=== PATIENT | female | born 1990 | race Caucasian/White ===

== ENCOUNTER → 2019-04-30 | Outpatient (CLI) | payer MEDICAID ==
[~2019-04-30] MED LIST: ARIP1TAB; HYDR-3363; MECL-68 PO; PRAZ1CAP; REGL10TA6 PO
[2019-04-30 10:52] LABS: HEMATOCRIT 37.8 % (36.0-47.0); HEMOGLOBIN 12.3 g/dl (12.0-15.5); MEAN CORPUSCULAR HEMOGLOBIN 30.9 pg (27.0-33.0); MEAN CORPUSCULAR HGB CONC 32.5 g/dl (32.0-36.5); PLATELET COUNT, AUTOMATED 260 10^3/uL (150-450); RED BLOOD COUNT 3.98 10^6/uL (4.00-5.40); WHITE BLOOD COUNT 4.6 10^3/uL (4.0-10.0)
[2019-04-30 11:24] LABS: HCG, SERUM QUALITATIVE NEGATIVE (NEGATIVE)
[2019-04-30 11:31] LABS: HEMOGLOBIN A1c 5.2 %
[2019-04-30 11:34] LABS: ALBUMIN 3.6 GM/DL (3.2-5.2); ALT/SGPT 25 U/L (12-78); BILIRUBIN,TOTAL 0.4 MG/DL (0.2-1.0); BLOOD UREA NITROGEN 16 MG/DL (7-18); CALCIUM LEVEL 8.6 MG/DL (8.5-10.1); CARBON DIOXIDE LEVEL 27 MEQ/L (21-32); CHLORIDE LEVEL 105 MEQ/L (98-107); CREATININE FOR GFR 0.74 MG/DL (0.55-1.30); GLOMERULAR FILTRATION RATE > 60.0 (>60); GLUCOSE, FASTING 86 MG/DL (70-100); POTASSIUM SERUM 4.4 MEQ/L (3.5-5.1); PROLACTIN 2.8 NG/ML; SODIUM LEVEL 139 MEQ/L (136-145); TOTAL PROTEIN 7.1 GM/DL (6.4-8.2)
--- NOTE | 2019-05-02 01:04 | ECGEPIP ---
[facility] Test Date: 2019-04-30 Pat Name: SHEILA LAI Department: Room: - Gender: Female [employer]ent [employer] Assistant: AKSHAT : 1990 Requested By: Marley Gage Order Number: [id number] Reading MD: Lorenzo Tena Measurements Intervals Reasnor Rate: 66 P: 33 WA: 142 QRS: 61 QRSD: 82 T: 15 QT: 385 QTc: 404 Interpretive Statements SINUS RHYTHM WITH SINUS ARRHYTHMIA BORDERLINE LOW-VOLTAGE QRS COMPLEXES IN THE LIMB LEADS NO PRIOR TRACING IN THE SYSTEM Electronically Signed on 05-02-2019 1:03:33 EST by Lorenzo Tena
== END ==
LOC: M LAB 09:41
PROVIDERS: ATTEND Nurse Practitioner Psychiatric/Mental Health
DX: F33.1 Major depressive disorder, recurrent, moderate (principal)

== ENCOUNTER 2019-05-08 19:54 | Emergency (ER) | payer MEDICAID ==
[~2019-05-08] VITALS: Ht 157.5 cm; Wt 71.3 kg
[2019-05-08] MEDS ORDERED: ARIP1TAB (20:00)
[2019-05-08] MEDS ORDERED: HYDR-3363 (20:00)
[2019-05-08] MEDS ORDERED: PRAZ1CAP (20:00)
[2019-05-08] MEDS ORDERED: diphenhydrAMINE INJ 50MG/ML VIAL (J1200) IV STA (20:28)
[2019-05-08] MEDS ORDERED: MECLIZINE 25 MG TABLET PO ONE (20:30)
[2019-05-08] MEDS ORDERED: METOCLOPRAMIDE INJ 10MG/2ML VIAL (J2765) IV ONE (20:30)
[2019-05-08] MEDS ORDERED: NS 1,000 ML IV ONE ×2 (20:30→22:45)
[2019-05-08] MEDS ORDERED: KETOROLAC 30 MG/ML VIAL (J1885) IV ONE (20:30)
[2019-05-08 20:55] LABS: BASO % 0.2 % (0.0-1.0); EOS % 0.3 % (0.0-3.0); HEMATOCRIT 39.5 % (36.0-47.0); HEMOGLOBIN 12.8 g/dl (12.0-15.5); LYMPH # 0.5 10^3/uL (1.5-5.0); LYMPH % 8.1 % (24.0-44.0); MEAN CORPUSCULAR HEMOGLOBIN 30.6 pg (27.0-33.0); MEAN CORPUSCULAR HGB CONC 32.4 g/dl (32.0-36.5); MEAN CORPUSCULAR VOLUME 94.5 fl (80.0-96.0); MONO # 0.4 10^3/uL (0.0-0.8); MONO % 6.3 % (0.0-5.0); NEUTROPHILS # 5.7 10^3/uL (1.5-8.5); NEUTROPHILS % 84.9 % (36.0-66.0); PLATELET COUNT, AUTOMATED 229 10^3/uL (150-450); RED BLOOD COUNT 4.18 10^6/uL (4.00-5.40); WHITE BLOOD COUNT 6.7 10^3/uL (4.0-10.0)
[2019-05-08 21:21] LABS: ALBUMIN 3.5 GM/DL (3.2-5.2); BILIRUBIN,DIRECT 0.2 MG/DL (0.0-0.2); BILIRUBIN,TOTAL 0.5 MG/DL (0.2-1.0); TOTAL PROTEIN 6.8 GM/DL (6.4-8.2)
[2019-05-08 21:24] LABS: BILIRUBIN, URINE MANUAL NEGATIVE (NEGATIVE); GLUCOSE, URINE (UA) MANUAL NEGATIVE (NEGATIVE); KETONE, URINE MANUAL NEGATIVE (NEGATIVE); UROBILINOGEN, URINE MANUAL NORMAL (NORMAL)
[2019-05-08 21:31] LABS: BACTERIA, URINE SMALL AMOUNT; HYALINE CAST, URINE NONE SEEN /lpf (0-1); RBC, URINE NONE SEEN /hpf (0-3); SQUAMOUS EPITHELIAL CELL URINE SMALL AMOUNT /hpf (SMALL AMT)
[2019-05-08] MEDS ORDERED: diazePAM 5 MG TAB PO ONE (22:45)
[2019-05-09 00:32] VITALS: BP 114/62
[2019-05-09] MEDS ORDERED: MECL-68 PO (00:32)
[2019-05-09] MEDS ORDERED: REGL10TA6 PO (00:32)
--- NOTE | 2019-05-09 06:36 | REP ---
Clinical: Headache with visual disturbances, dizziness and nausea/vomiting . Comparison: None . Findings: The ventricles, sulci, and cisterns are normal in position and appearance. Beltran-white differentiation is maintained. No acute intracranial hemorrhage, mass/mass effect, pathology or trauma/injury. No evidence for acute infarction. No extra-axial fluid collection. Calvarium is intact. Paranasal sinuses and mastoid air cells are clear. Impression: Normal noncontrast head CT. No evidence for acute intracranial pathology or trauma/injury. Electronically Signed by Nolan Navarro MD 05/09/2019 06:27 A
[2019-05-13 00:07] LABS: Lyme Disease IgG Ab 18 kDa Ban Present (.); Lyme Disease IgG Ab 23 kDa Ban Absent (.); Lyme Disease IgG Ab 28 kDa Ban Absent (.); Lyme Disease IgG Ab 30 kDa Ban Absent (.); Lyme Disease IgG Ab 39 kDa Ban Absent (.); Lyme Disease IgG Ab 41 kDa Ban Absent (.); Lyme Disease IgG Ab 45 kDa Ban Absent (.); Lyme Disease IgG Ab 58 kDa Ban Absent (.); Lyme Disease IgG Ab 66 kDa Ban Absent (.); Lyme Disease IgG Ab 93 kDa Ban Absent (.); Lyme Disease IgG West Blot Int Negative (.); Lyme Disease IgG/IgM Antibodie 0.96 ISR (0.00-0.90); Lyme Disease IgM Ab 23 kDa Ban Absent (.); Lyme Disease IgM Ab 39 kDa Ban Absent (.); Lyme Disease IgM Ab 41 kDa Ban Absent (.); Lyme Disease IgM Ab Quantitati <0.80 index (0.00-0.79); Lyme Disease IgM West Blot Int Negative (.)
== END 2019-05-09 00:42 | disposition home or self-care (01) ==
LOC: M ED 19:54
DX: R42 Dizziness and giddiness (principal); I95.1 Orthostatic hypotension; H53.8 Other visual disturbances; R01.1 Cardiac murmur, unspecified; Z87.891 Personal history of nicotine dependence; Z79.899 Other long term (current) drug therapy; Z88.0 Allergy status to penicillin
CPT/HCPCS: 70450; 80047; 80076; 81000; 83690; 84702; 85025; 86617; 96361; 96374; 96375; 99284; J1200; J1885; J2765

== ENCOUNTER → 2020-05-13 | Outpatient (CLI) | payer SELFPAY ==
[~2020-05-13] MED LIST changes: -MECL-68 PO; +MECL1TAB31 PO
== END ==
LOC: M LABSMTC 13:23
PROVIDERS: ATTEND Pediatrics
DX: Z20.828 Contact with and (suspected) exposure to other viral communicable diseases (principal)

== ENCOUNTER → 2020-06-14 | Outpatient (CLI) | payer SELFPAY | LOC: M LABSMTC 14:22 | PROVIDERS: ATTEND Pediatrics | DX: Z20.828 Contact with and (suspected) exposure to other viral communicable diseases (principal) ==

== ENCOUNTER → 2020-08-09 | Outpatient (CLI) | payer OTHER ==
--- NOTE | 2020-08-09 10:02 | REP ---
INDICATION: PAIN COMPARISON: None. TECHNIQUE: AP, lateral, bilateral oblique views right ankle. FINDINGS: No acute fracture or dislocation. Skeletal structures and joint spaces are intact and normal. Ankle mortise appears stable. No subcutaneous emphysema or radiodense foreign body. IMPRESSION: Normal age-appropriate right ankle radiograph series. No acute fracture or dislocation. <Electronically signed by Nolan Navarro > 08/09/20 [id number]
== END ==
LOC: M WUC 09:39
PROVIDERS: ATTEND Physician Assistant
DX: M25.571 Pain in right ankle and joints of right foot (principal)

== ENCOUNTER → 2020-08-18 | Outpatient (REF) | payer OTHER ==
[2020-08-18 13:50] LABS: ALBUMIN 3.8 GM/DL (3.2-5.2); ALT/SGPT 20 U/L (12-78); BILIRUBIN,TOTAL 0.3 MG/DL (0.2-1.0); BLOOD UREA NITROGEN 11 MG/DL (7-18); CALCIUM LEVEL 9.2 MG/DL (8.5-10.1); CARBON DIOXIDE LEVEL 27 MEQ/L (21-32); CHLORIDE LEVEL 106 MEQ/L (98-107); CHOLESTEROL LEVEL 178 MG/DL (<200); CHOLESTEROL RISK RATIO 2.781 (<5); CREATININE FOR GFR 0.87 MG/DL (0.55-1.30); GLOMERULAR FILTRATION RATE > 60.0 (>60); GLUCOSE, FASTING 92 MG/DL (70-100); HDL CHOLESTEROL 64 MG/DL (>40); LDL CHOLESTEROL 101 MG/DL (<100); NON-HDL-C 114 MG/DL; POTASSIUM SERUM 4.2 MEQ/L (3.5-5.1); SODIUM LEVEL 140 MEQ/L (136-145); THYROID STIMULATING HORMONE 0.654 uIU/ML (0.358-3.740); TOTAL PROTEIN 7.3 GM/DL (6.4-8.2); TRIGLYCERIDES LEVEL 65 MG/DL (<150)
[2020-08-18 13:58] LABS: BASO % 0.1 % (0.0-1.0); EOS % 0.3 % (0.0-3.0); HEMATOCRIT 37.4 % (36.0-47.0); HEMOGLOBIN 12.1 g/dl (12.0-15.5); LYMPH % 34.2 % (24.0-44.0); MEAN CORPUSCULAR HEMOGLOBIN 31.5 pg (27.0-33.0); MEAN CORPUSCULAR HGB CONC 32.4 g/dl (32.0-36.5); MEAN CORPUSCULAR VOLUME 97.4 fl (80.0-96.0); MONO # 0.7 10^3/uL (0.0-0.8); MONO % 7.6 % (2.0-8.0); NEUTROPHILS % 57.6 % (36.0-66.0); PLATELET COUNT, AUTOMATED 281 10^3/uL (150-450); RED BLOOD COUNT 3.84 10^6/uL (4.00-5.40); WHITE BLOOD COUNT 8.7 10^3/uL (4.0-10.0)
[2020-08-18 14:29] LABS: HIV 1&2 SCREEN CENTAUR NEGATIVE (NEGATIVE)
== END ==
LOC: M LAB REF 12:30
PROVIDERS: ATTEND Family Medicine Addiction Medicine
DX: Z00.01 Encounter for general adult medical examination with abnormal findings (principal)

== ENCOUNTER → 2020-08-26 | Outpatient (REF) | LOC: M LABSMTC 13:57 | PROVIDERS: ATTEND Pediatrics | DX: Z11.52 Encounter for screening for COVID-19 (principal) ==

== ENCOUNTER → 2020-09-24 | Outpatient (REF) | LOC: M LABSMTC 11:32 | PROVIDERS: ATTEND Pediatrics | DX: Z20.822 Contact with and (suspected) exposure to COVID-19 (principal) ==

== ENCOUNTER → 2021-03-23 | Outpatient (CLI) | payer OTHER ==
[~2021-03-23] MED LIST changes: +ARIP10TA32; -ARIP1TAB
[2021-03-24 13:08] LABS: HSV TYPE II IgG SPECIFIC 4.47 index (0.00-0.90)
== END ==
LOC: M PLALAB 09:18
PROVIDERS: ATTEND Advanced Practice Midwife
DX: Z12.4 Encounter for screening for malignant neoplasm of cervix (principal); Z77.9 Other contact with and (suspected) exposures hazardous to health

== ENCOUNTER → 2021-06-14 | Outpatient (CLI) | payer OTHER ==
--- NOTE | 2021-06-14 08:18 | REP ---
INDICATION: UNSPECIFIED ABDOMINAL PAIN COMPARISON: None TECHNIQUE: Real time B-mode levy scale ultrasound examination using curved array transducer. FINDINGS: Liver, spleen, and pancreas are normal in contour, size, echogenicity, and overall appearance. No focal hepatic, splenic or pancreatic lesions are identified. Gallbladder is normal without gallstones, wall thickening, or pericholecystic fluid. No biliary ductal dilatation is appreciated and the common bile duct measures 4.7 mm in diameter. The bilateral kidneys are normal in reniform shape without hydronephrosis or obvious abnormality. Right kidney measures 10.6 x 5.9 x 4.0 cm. Left kidney measures 11.4 x 5.9 x 4.3 cm. No obvious ascites. Abdominal aorta is grossly normal. IMPRESSION: Essentially normal age-appropriate complete abdominal ultrasound. <Electronically signed by Nolan Navarro > 06/14/21 [id number]
== END ==
LOC: M RAD 06:30
PROVIDERS: ATTEND Nurse Practitioner Family
DX: R11.2 Nausea with vomiting, unspecified (principal); R10.9 Unspecified abdominal pain

== ENCOUNTER → 2021-07-11 | Outpatient (CLI) | payer OTHER | LOC: M LABSMTC 10:13 | PROVIDERS: ATTEND Internal Medicine Gastroenterology | DX: Z01.812 Encounter for preprocedural laboratory examination (principal); Z20.822 Contact with and (suspected) exposure to COVID-19 ==

== ENCOUNTER → 2021-07-20 | Outpatient (CLI) | payer OTHER | LOC: M LABSMTC 10:56 | PROVIDERS: ATTEND Internal Medicine Gastroenterology | DX: Z01.812 Encounter for preprocedural laboratory examination (principal); Z20.822 Contact with and (suspected) exposure to COVID-19; Z91.040 Latex allergy status; Z88.0 Allergy status to penicillin ==

== ENCOUNTER → 2021-10-20 | Outpatient (CLI) | payer OTHER | LOC: M LAB 09:17 | PROVIDERS: ATTEND Family Medicine Addiction Medicine | DX: R07.9 Chest pain, unspecified (principal) ==

== ENCOUNTER → 2022-03-07 | Outpatient (REF) | payer OTHER | LOC: M SFHCWAGY 15:31 | PROVIDERS: ATTEND Advanced Practice Midwife | DX: D17.1 Benign lipomatous neoplasm of skin and subcutaneous tissue of trunk (principal); N90.89 Other specified noninflammatory disorders of vulva and perineum ==

== ENCOUNTER 2022-06-18 11:44 | Emergency (ER) | payer OTHER ==
[~2022-06-18] VITALS: Ht 157.5 cm; Wt 80.7 kg
[2022-06-18] MEDS ORDERED: LAMO25TA4 (12:09)
[2022-06-18] MEDS ORDERED: PANT20TA6 (12:09)
[2022-06-18] MEDS ORDERED: ARIP1TAB6 (12:09)
[2022-06-18] MEDS ORDERED: BUPR150T12 (12:09)
[2022-06-18] MEDS ORDERED: LAMO200T3 (12:09)
[2022-06-18] MEDS ORDERED: NS 1,000 ML IV ONE (15:25)
[2022-06-18] MEDS ORDERED: ONDANSETRON 4MG 2ML VIAL IV ONE (15:25)
[2022-06-18] MEDS ORDERED: KETOROLAC 30 MG/ML 1ML VIAL IV ONE (15:25)
[2022-06-18 16:05] LABS: BASO % 0.3 % (0.0-1.0); HEMATOCRIT 39.2 % (36.0-47.0); HEMOGLOBIN 13.1 g/dl (12.0-15.5); LYMPH # 1.5 10^3/uL (1.5-5.0); LYMPH % 13.6 % (24.0-44.0); MEAN CORPUSCULAR HGB CONC 33.4 g/dl (32.0-36.5); MEAN CORPUSCULAR VOLUME 92.7 fl (80.0-96.0); MONO # 0.5 10^3/uL (0.0-0.8); MONO % 4.8 % (2.0-8.0); PLATELET COUNT, AUTOMATED 342 10^3/uL (150-450); RED BLOOD COUNT 4.23 10^6/uL (4.00-5.40); WHITE BLOOD COUNT 11.1 10^3/uL (4.0-10.0)
[2022-06-18] MEDS ORDERED: METOCLOPRAMIDE INJ 10MG/2ML VIAL IV ONE (16:20)
[2022-06-18 16:25] LABS: LIPASE 28 U/L (12-53)
[2022-06-18] MEDS ORDERED: MORPHINE 4 MG/ML 1ML VIAL IV PRN (16:25)
[2022-06-18 16:27] LABS: ALBUMIN 4.1 G/DL (3.2-5.2); ALKALINE PHOSPHATASE 54 U/L (46-116); ALT/SGPT 20 U/L (7.0-40); AST/SGOT 18 U/L (<34); BILIRUBIN,DIRECT 0.2 MG/DL (<0.4); BILIRUBIN,TOTAL 0.7 MG/DL (0.3-1.2); BLOOD UREA NITROGEN 8 MG/DL (9-23); CALCIUM LEVEL 9.5 MG/DL (8.5-10.1); CARBON DIOXIDE LEVEL 22 MMOL/L (20-31); CHLORIDE LEVEL 106 MMOL/L (98-107); CREATININE FOR GFR 0.66 MG/DL (0.55-1.30); GLOMERULAR FILTRATION RATE > 60.0 (>60); GLUCOSE, FASTING 99 MG/DL (60-100); POTASSIUM SERUM 3.8 MMOL/L (3.5-5.1); SODIUM LEVEL 140 MMOL/L (136-145); TOTAL PROTEIN 7.4 G/DL (5.7-8.2)
[2022-06-18 16:33] LABS: RSV AMPLIFICATION NEGATIVE (NEGATIVE)
[2022-06-18 16:55] VITALS: BP 119/87
[2022-06-18] MEDS ORDERED: ONDA4TAB6 PO (19:23)
== END 2022-06-18 19:36 | disposition home or self-care (01) ==
LOC: M ED 14:37
DX: R10.9 Unspecified abdominal pain (principal); R11.2 Nausea with vomiting, unspecified; R19.7 Diarrhea, unspecified; F31.9 Bipolar disorder, unspecified; Z88.0 Allergy status to penicillin; Z91.040 Latex allergy status; Z79.899 Other long term (current) drug therapy
CPT/HCPCS: 80048; 80076; 83690; 84702; 85025; 87631; 96360; 96374; 96375; 99284; J2405

== ENCOUNTER → 2022-06-19 | Outpatient (REF) | payer OTHER ==
[~2022-06-19] MED LIST changes: +ARIP1TAB6; +BUPR150T12; +LAMO200T3; +LAMO25TA4; +ONDA4TAB6 PO; +PANT20TA6
== END ==
LOC: M LAB REF 16:26
PROVIDERS: ATTEND Physician Assistant
DX: R19.7 Diarrhea, unspecified (principal)

== ENCOUNTER → 2022-09-05 | Outpatient (CLI) | payer OTHER | LOC: M SOG 07:58 | PROVIDERS: ATTEND Physician Assistant | DX: M25.532 Pain in left wrist (principal) ==

== ENCOUNTER 2022-12-23 15:16 | Emergency (ER) | payer OTHER ==
[~2022-12-23] VITALS: Ht 157.5 cm; Wt 82.4 kg
[~2022-12-23 15:16] MED LIST changes: -ARIP1TAB6; +ARIP1TAB6 PO; -BUPR150T12; +BUPR150T12 PO; -LAMO25TA4; +LAMO25TA4 PO
[2022-12-23] MEDS ORDERED: HYDR-3363 PO (15:52)
[2022-12-23] MEDS ORDERED: LIDOCAINE 2% MDV 20ML VIAL SC ONE (17:30)
[2022-12-23] MEDS ORDERED: NEOSPORIN OINT 0.9 GM PKT TOP ONE (18:00)
[2022-12-23 18:08] VITALS: BP 114/78; TEMP 98.2; O2SAT 99
== END 2022-12-23 18:15 | disposition home or self-care (01) ==
LOC: M ED 15:16
DX: S61.213A Laceration without foreign body of left middle finger without damage to nail, initial encounter (principal); W27.2XXA Contact with scissors, initial encounter; Y99.0 Civilian activity done for income or pay; Y93.89 Activity, other specified; Z79.899 Other long term (current) drug therapy; Z88.0 Allergy status to penicillin; Z91.040 Latex allergy status

== ENCOUNTER 2023-01-14 08:21 | Emergency (ER) | payer OTHER ==
[~2023-01-14] VITALS: Ht 157.5 cm; Wt 83.3 kg
[~2023-01-14 08:21] MED LIST changes: +HYDR-3363 PO
[2023-01-14 08:22] VITALS: TEMP 97.3
[2023-01-14] MEDS ORDERED: BACT800T5 PO (08:38)
[2023-01-14] MEDS ORDERED: ONDANSETRON 4MG 2ML VIAL IV ONE (11:25)
[2023-01-14] MEDS ORDERED: NS 1,000 ML IV ONE (11:25)
[2023-01-14 11:47] LABS: BASO % 0.5 % (0.0-1.0); EOS # 0.1 10^3/uL (0.0-0.5); EOS % 0.9 % (0.0-3.0); HEMATOCRIT 38.5 % (36.0-47.0); HEMOGLOBIN 12.5 g/dl (12.0-15.5); LYMPH # 1.9 10^3/uL (1.5-5.0); LYMPH % 30.3 % (24.0-44.0); MEAN CORPUSCULAR HEMOGLOBIN 30.7 pg (27.0-33.0); MEAN CORPUSCULAR HGB CONC 32.5 g/dl (32.0-36.5); MEAN CORPUSCULAR VOLUME 94.6 fl (80.0-96.0); MONO # 0.6 10^3/uL (0.0-0.8); MONO % 9.7 % (2.0-8.0); NEUTROPHILS # 3.7 10^3/uL (1.5-8.5); NEUTROPHILS % 58.3 % (36.0-66.0); PLATELET COUNT, AUTOMATED 283 10^3/uL (150-450); RED BLOOD COUNT 4.07 10^6/uL (4.00-5.40); WHITE BLOOD COUNT 6.4 10^3/uL (4.0-10.0)
[2023-01-14] MEDS ORDERED: ISOVUE-370 76% 100ML VIAL As Ordered ONE (11:58)
[2023-01-14] MEDS ORDERED: KETOROLAC 30 MG/ML 1ML VIAL IV ONE (12:00)
[2023-01-14 12:02] LABS: LIPASE 30 U/L (12-53)
[2023-01-14 12:04] LABS: ALBUMIN 3.8 G/DL (3.2-5.2); ALKALINE PHOSPHATASE 61 U/L (46-116); ALT/SGPT 44 U/L (7.0-40); AST/SGOT 17 U/L (<34); BILIRUBIN,DIRECT < 0.1 MG/DL (<0.4); BILIRUBIN,TOTAL 0.3 MG/DL (0.3-1.2); TOTAL PROTEIN 6.8 G/DL (5.7-8.2)
[2023-01-14 12:59] LABS: GC DNA AMPLIFICATION NEGATIVE (NEGATIVE)
[2023-01-14] MEDS ORDERED: NITROFURANTOIN (MACROBID) 100 MG CAP PO ONE (13:05)
[2023-01-14] MEDS ORDERED: MACR100C43 PO (13:08)
[2023-01-14] MEDS ORDERED: ACETAMINOPHEN 500 MG TAB PO ONE (13:15)
[2023-01-14 13:21] VITALS: BP 117/70; O2SAT 99
== END 2023-01-14 13:29 | disposition home or self-care (01) ==
LOC: M ED 08:21
DX: N39.0 Urinary tract infection, site not specified (principal); N28.1 Cyst of kidney, acquired; K59.00 Constipation, unspecified; Z88.0 Allergy status to penicillin; Z91.040 Latex allergy status; F31.9 Bipolar disorder, unspecified; Z79.899 Other long term (current) drug therapy
CPT/HCPCS: 36415; 74177; 80047; 80076; 81001; 83690; 84702; 85025; 87086; 87661; 87810; 87850; 96374; 96375; 99284; J1885; J2405; Q9967

== ENCOUNTER 2023-08-27 09:59 | Emergency (ER) | payer OTHER ==
[~2023-08-27] VITALS: Ht 157.5 cm; Wt 82.3 kg
[2023-08-27 09:59] VITALS: BP 133/67; TEMP 98; O2SAT 98
[~2023-08-27 09:59] MED LIST changes: +BACT800T5 PO; +MACR100C43 PO; +MECL-209 PO; -MECL1TAB31 PO
[2023-08-27] MEDS ORDERED: LAMO200T3 PO (10:08)
[2023-08-27] MEDS: ONDANSETRON 4MG ORAL DISINTEGRATING TAB PO ONE (12:49)
[2023-08-27] MEDS: IBUPROFEN 400MG TAB PO ONE (13:46)
[2023-08-27] MEDS ORDERED: ONDA4TAB6 PO (14:09)
== END 2023-08-27 14:27 | disposition home or self-care (01) ==
LOC: M ED 09:59
DX: J06.9 Acute upper respiratory infection, unspecified (principal); R11.2 Nausea with vomiting, unspecified; R19.7 Diarrhea, unspecified; Z79.899 Other long term (current) drug therapy; Z88.0 Allergy status to penicillin; Z91.040 Latex allergy status

== ENCOUNTER → 2024-01-22 | Outpatient (REF) | payer OTHER ==
[~2024-01-22] MED LIST changes: +LAMO200T3 PO; +ONDA-282 PO; -ONDA4TAB6 PO
== END ==
LOC: M LAB REF 12:27
PROVIDERS: ATTEND Family Medicine Addiction Medicine
DX: N39.0 Urinary tract infection, site not specified (principal)